=== PATIENT | female | born 1930 | race Two or more races ===

== ENCOUNTER 2019-07-31 13:00 | Emergency (ER) | payer MEDICARE, OTHER ==
[~2019-07-31] VITALS: Ht 152.4 cm; Wt 54.5 kg
[2019-07-31] MEDS ORDERED: [UNRECOGNIZED DRUG - REMARK] PO (13:26)
[2019-07-31 17:21] VITALS: BP 126/78
== END 2019-07-31 17:41 | disposition home or self-care (01) ==
LOC: EMS 13:02
DX: S00.81XA Abrasion of other part of head, initial encounter (principal); I10 Essential (primary) hypertension; F03.90 Unspecified dementia, unspecified severity, without behavioral disturbance, psychotic disturbance, mood disturbance, and anxiety; W18.39XA Other fall on same level, initial encounter; Y93.89 Activity, other specified; Y92.89 Other specified places as the place of occurrence of the external cause; Y99.8 Other external cause status
CPT/HCPCS: 70450; 72125